=== PATIENT | female | born 1995 ===

== ENCOUNTER 2019-01-21 05:27 | Day surgery (SDC) | payer OTHER ==
[~2019-01-21 05:27] MED LIST: CLARITIN10 M1 PO; SINGULAIR 10MG10 MG PO; VALACYCLOVIR500 MG PO
[2019-01-21] MEDS ORDERED: PERCOCET 5-3251 EACH PO (08:46)
== END 2019-01-21 10:50 | disposition home or self-care (01) ==
LOC: CIR.AMB 05:27
DX: N80.2 Endometriosis of fallopian tube (principal); N80.1 Endometriosis of ovary; N80.0 Endometriosis of uterus; N73.6 Female pelvic peritoneal adhesions (postinfective)